=== PATIENT | male | born 1985 | race Caucasian/White ===

== ENCOUNTER 2017-07-07 02:00 | Emergency (ER) | payer OTHER ==
--- NOTE | 2017-07-07 08:12 | RAD ---
LEFT KNEE FOUR VIEWS: INDICATIONS: Fall. Pain. FINDINGS: Minimal joint capsular distention is present without fracture or dislocation. No significant arthro oracio. IMPRESSION: Minimal joint capsular distention without evidence of acute fracture. POS: [facility]
== END 2017-07-07 03:10 | disposition home or self-care (01) ==
LOC: ERS 02:00
DX: S83.92XA Sprain of unspecified site of left knee, initial encounter (principal); S00.212A Abrasion of left eyelid and periocular area, initial encounter; F17.210 Nicotine dependence, cigarettes, uncomplicated; W10.9XXA Fall (on) (from) unspecified stairs and steps, initial encounter; Y92.009 Unspecified place in unspecified non-institutional (private) residence as the place of occurrence of the external cause